=== PATIENT | female | born 1975 | race Caucasian/White ===

== ENCOUNTER 2019-08-20 08:53 | Emergency (ER) | payer OTHER | END 2019-08-20 09:20 | disposition left against medical advice (07) | LOC: JD.ED 08:53 | DX: Z53.21 Procedure and treatment not carried out due to patient leaving prior to being seen by health care provider (principal) ==

== ENCOUNTER 2020-01-13 06:18 | Day surgery (SDC) | payer OTHER ==
[~2020-01-13 06:18] MED LIST: Lactated Ringers 1,000 ML IV SCH; Lidocaine 1%/Sod Bicarbonate in NS 8.4% 1 ML Syringe IDERM PRN; Sodium Chloride 0.9% 10 ML Syringe FLUSH PRN
[2020-01-13] MEDS ORDERED: Lidocaine 1% with EPINEPHrine 1:100,000 20 ML MDV ONE (06:33)
[2020-01-13] MEDS ORDERED: Bupivacaine 0.5% 30 ML SDV ONE (06:33)
[2020-01-13] MEDS ORDERED: Sodium Chloride 0.9% 50 ML SDV ONE (06:33)
[2020-01-13] MEDS ORDERED: Scopolamine 1.5 MG Transdermal Patch TRDERM SCH (07:05)
--- NOTE | 2020-01-13 07:13 | PCM.PREANE ---
Preanesthetic Assessment - Anesthesia/Transfusion/Family Hx Anesthesia History: Prior Anesthesia Reaction Type of Anesthesia Reaction: Excessive Nausea/Vomiting Transfusion History: No Prior Transfusion(s) - Review of Systems General: No Symptoms Pulmonary: No Symptoms Cardiovascular: No Symptoms Gastrointestinal: No Symptoms Neurological: No Symptoms Other: Reports: None - Physical Assessment NPO Status Date: 01/12/20 NPO Status Time: 20:15 Vital Signs: Last Vital Signs Temp 98.2 F 01/13/20 06:30 Pulse 95 01/13/20 06:30 Resp 16 01/13/20 06:30 BP 130/92 H 01/13/20 06:30 Pulse Ox 99 01/13/20 06:30 Height: 1.8 m Weight: 80.739 kg ASA Class: 1 Mental Status: Alert & Oriented x3 Airway Class: Mallampati = 1 Dentition: Reports: Normal Dentition Thyro-Mental Finger Breadths: 3 Mouth Opening Finger Breadths: 3 ROM/Head Extension: Full Lungs: Clear to Auscultation, Normal Respiratory Effort Cardiovascular: Regular Rate, Regular Rhythm - Lab Values: Laboratory Last Values WBC 5.25 K/mm3 (3.98-10.04) 01/13/20 06:42 RBC 5.05 M/mm3 (3.98-5.22) 01/13/20 06:42 Hgb 14.1 gm/dl (11.2-15.7) 01/13/20 06:42 Hct 42.6 % (34.1-44.9) 01/13/20 06:42 MCV 84.4 fl (79.4-94.8) 01/13/20 06:42 MCH 27.9 pg (25.6-32.2) 01/13/20 06:42 MCHC 33.1 g/dl (32.2-35.5) 01/13/20 06:42 RDW Std Deviation 41.9 fL (36.4-46.3) 01/13/20 06:42 Plt Count 346 K/mm3 (182-369) 01/13/20 06:42 MPV 9.2 fl (9.4-12.3) L 01/13/20 06:42 Neut % (Auto) 62.8 % (34.0-71.1) 01/13/20 06:42 Lymph % (Auto) 26.1 % (19.3-51.7) 01/13/20 06:42 [place] % (Auto) 8.2 % (4.7-12.5) 01/13/20 06:42 Eos % (Auto) 2.1 (0.7-5.8) 01/13/20 06:42 Baso % (Auto) 0.4 % (0.1-1.2) 01/13/20 06:42 Neut # (Auto) 3.30 K/mm3 (1.56-6.13) 01/13/20 06:42 Lymph # (Auto) 1.37 K/mm3 (1.18-3.74) 01/13/20 06:42 [place] # (Auto) 0.43 K/mm3 (0.24-0.36) H 01/13/20 06:42 Eos # (Auto) 0.11 K/mm3 (0.04-0.36) 01/13/20 06:42 Baso # (Auto) 0.02 K/mm3 (0.01-0.08) 01/13/20 06:42 Urine Color Yellow (Yellow) 01/13/20 06:25 Urine Appearance Clear (Clear) 01/13/20 06:25 Urine pH 7.5 (5.0-8.0) 01/13/20 06:25 Ur Specific [place] 1.020 (1.005-1.030) 01/13/20 06:25 Urine Protein Trace (Negative) H 01/13/20 06:25 Urine Glucose (UA) Negative (Negative) 01/13/20 06:25 Urine Ketones Negative (Negative) 01/13/20 06:25 Urine Occult Blood Negative (Negative) 01/13/20 06:25 Urine Nitrite Negative (Negative) 01/13/20 06:25 Urine Bilirubin Negative (Negative) 01/13/20 06:25 Urine Urobilinogen 1.0 (0.2-1.0) 01/13/20 06:25 Ur Leukocyte Esterase Negative (Negative) 01/13/20 06:25 Urine RBC 0-5 /hpf (0-5) 01/13/20 06:25 Urine WBC Not seen /hpf (0-5) 01/13/20 06:25 Ur Squamous Epith Cells 0-5 /hpf (0-5) 01/13/20 06:25 Urine Bacteria Moderate /hpf (FEW) H 01/13/20 06:25 Urine Mucus Few /hpf (FEW) 01/13/20 06:25 Urine HCG, Qual Negative (NEGATIVE) 01/13/20 06:25 - Allergies Allergies/Adverse Reactions: Allergies Allergy/AdvReac Type Severity Reaction Status Date / Time No Known Allergies Allergy Verified 01/12/20 12:49 - Acknowledgements Anesthesia Type Planned: General Anesthesia, Regional Block (possible TAP block for incisional pain postoperatively.) Pt an Appropriate Candidate for the Planned Anesthesia: Yes Alternatives and Risks of Anesthesia Discussed w Pt/Guardian: Yes Pt/Guardian Understands and Agrees with Anesthesia Plan: Yes PreAnesthesia Questionnaire HEENT History: Reports: Impaired Vision Other HEENT History: wears glasses Cardiovascular History: Reports: None Respiratory History: Reports: None Gastrointestinal History: Reports: None Genitourinary History: Reports: None SUPERVISOR PLASTERING History: Reports: Other (See Below) Other OB/BYN History: colposcopy, HPV, VEE III, LGSIL Musculoskeletal History: Reports: None Neurological History: Reports: None Psychiatric History: Reports: Anxiety, OCD Endocrine/Metabolic History: Reports: None Hematologic History: Reports: None Immunologic History: Reports: None Oncologic (Cancer) History: Reports: None Dermatologic History: Reports: None - Past Surgical History Head Surgeries/Procedures: Reports: None HEENT Surgical History: Reports: None Cardiovascular Surgical History: Reports: None Respiratory Surgical History: Reports: None GI Surgical History: Reports: None Female Surgical History: Reports: Breast Implant, Section, LEEP, Tubal Ligation Male Surgical History: Reports: None Endocrine Surgical History: Reports: None Neurological Surgical History: Reports: None Musculoskeletal Surgical History: Reports: None Oncologic Surgical History: Reports: None Dermatological Surgical History: Reports: None - SUBSTANCE USE Smoking Status *Q: Never Smoker Recreational Drug Use History: No - HOME MEDS Home Medications: Home Meds Calcium Carbonate/Vitamin D3 [Calcium 600 + Vit D 200] 1 each PO DAILY 01/12/20 [History] Cyanocobalamin (Vitamin B-12) [Vitamin B-12] 1,000 mcg PO DAILY 01/12/20 [ History] Fish Oil/Borage/Flax/Om3,6,9 1 [[place] 3-6-9 Complex Softgel] 1 each PO DAILY [History] Lactobacillus Acidophilus [Probiotic] 1 each PO DAILY 01/12/20 [History] Multivitamin [Daily Rosie] 1 each PO DAILY 01/12/20 [History] Venlafaxine HCl [Venlafaxine ER] 75 mg PO DAILY 01/12/20 [History] Venlafaxine HCl [Venlafaxine ER] 150 mg PO DAILY 01/12/20 [History] diphenhydrAMINE HCl [Benadryl Allergy] 25 mg PO Q6H PRN 01/12/20 [History] - CURRENT (IN HOUSE) MEDS Current Meds: Current Medications Lactated Ringer's (Ringers, Lactated) 1,000 mls @ 125 mls/hr IV ASDIRECTED MAI Last Admin: 01/13/20 06:45 Dose: 125 mls/hr Lidocaine/Sodium Bicarbonate (Buffered Lidocaine 1% In Ns 8.4%) 0.25 ml IDERM ONETIME PRN PRN Reason: Prior to IV Start Last Admin: 01/13/20 06:45 Dose: 0.25 ml Scopolamine (Transderm-Scop) 1.5 mg TRDERM ONETIME MAI Sodium Chloride (Saline Flush) 10 ml FLUSH ASDIRECTED PRN PRN Reason: Keep Vein Open Discontinued Medications Bupivacaine HCl (Marcaine 0.5%) Confirm Administered Dose 30 ml .ROUTE .STK-MED ONE Stop: 01/13/20 06:34 Lidocaine/Epinephrine (Xylocaine 1% With Epinephrine 1:100,000) Confirm Administered Dose 20 ml .ROUTE .STK-MED ONE Stop: 01/13/20 06:34 Sodium Chloride (Normal Saline) Confirm Administered Dose 50 ml .ROUTE .STK-MED ONE Stop: 01/13/20 06:34
[2020-01-13] MEDS ORDERED: Propofol 200 MG/20 ML SDV ONE ×2 (07:18→09:11)
[2020-01-13] MEDS ORDERED: Rocuronium 50 MG/5 ML Vial ONE (07:18)
[2020-01-13] MEDS ORDERED: Midazolam 1 MG/ML 2 ML SDV ONE (07:19)
[2020-01-13] MEDS ORDERED: fentaNYL 250 MCG/5 ML SDV ONE (07:19)
[2020-01-13] MEDS ORDERED: ceFAZolin 1 GM Vial ONE (07:19)
[2020-01-13] MEDS ORDERED: Lidocaine 1% 6 ML ONE (07:19)
[2020-01-13] MEDS ORDERED: Lactated Ringers 1,000 ML ONE (08:12)
[2020-01-13] MEDS ORDERED: Succinylcholine/Sod PF 100 MG/5 ML SYRINGE IV ONE (08:13)
[2020-01-13] MEDS ORDERED: Dexamethasone 4 MG/ML 5 ML MDV ONE (08:17)
[2020-01-13] MEDS ORDERED: Ondansetron 4 MG/2 ML SDV ONE (08:17)
[2020-01-13] MEDS ORDERED: Ketorolac 30 MG/ML SDV ONE (08:17)
[2020-01-13] MEDS ORDERED: fentaNYL 100 MCG/2 ML SDV IVPUSH PRN (08:36)
[2020-01-13] MEDS ORDERED: HYDROmorphone 0.5 MG/0.5 ML Syringe IVPUSH PRN (08:36)
[2020-01-13] MEDS ORDERED: Prochlorperazine 10 MG/2 ML SDV IVPUSH PRN (08:38)
[2020-01-13] MEDS ORDERED: HYDROmorphone 0.5 MG/0.5 ML Syringe ONE (08:39)
[2020-01-13] MEDS ORDERED: Acetaminophen/oxyCODONE 325-5 MG Tab PO PRN (09:07)
[2020-01-13] MEDS ORDERED: Ondansetron 4 MG/2 ML SDV IVPUSH PRN (09:07)
--- NOTE | 2020-01-13 09:21 | PCM.OPNOTE ---
- General Post-Op/Procedure Note Date of Surgery/Procedure: 01/13/20 Operative Procedure(s): Laparoscopically assisted total vaginal hysterectomy with bilateral salpingectomy Findings: Moderate scarring was noted in the anterior lower uterine segment secondary to sections. Fallopian tubes were status post partial salpingectomy done as tubal ligation. Apgars were functional and normal in appearance bilaterally. Appendix appeared flaccid and noninflamed. Anterior and posterior cul-de-sacs otherwise unremarkable. The gallbladder and liver edges were unremarkable. Pre Op Diagnosis: 1. Persistently abnormal Pap smearslow-grade squamous intraepithelial lesion Post-Op Diagnosis: Same Anesthesia Technique: General ET Tube Other Anesthesia Type: 1. Lidocaine quarter percent with epi20 mL 2. Marcaine 0.5%-local10 mL Primary Surgeon: El Storey Secondary Surgeon: Aime Loaiza Anesthesia Provider: Nabil [place] Reason Rock Crusher Was Necessary: Retraction, assistance, patient safety, quality of care. Pathology: Uterus, bilateral fallopian tubes in one specimen container Fluid Replacement, Intraop: 1,800 Output, Urine Amount: 100 EBL in mLs: 150 Drain/Tube Comments:: Indwelling bladder catheter during surgery onlyremoved at the end of the case. Complications: None Condition: Good Free Text/Narrative:: Surgery duration: 53 minutes The patient was taken to the operating room placed in supine position on the operating table. She received 2 g of Ancef preoperatively for infection prophylaxis. She had signed consent previously. After adequate anesthesia patient was placed in a dorsal lithotomy position. It should be noted she had sequential compression stockings in place for DVT prophylaxis. A uterine manipulator was placed as was an latex free indwelling bladder catheter. This was done after adequate prepping and draping. The patient was placed in supine position and 3 laparoscopic port sites were developed. Marcaine 0.5% approximately 3-5 mL was injected at each site. Verres needle was placed and pneumoperitoneum was achieved with 3 L of CO2. Infraumbilical and 2 lateral port sites were developed. Under laparoscopic guidance the upper portion of the hysterectomy was performed. The right mesosalpinx was elevated and crossclamped using the endoseal computerized cautery device. This effectively removed the right fallopian tube which was stopped into the posterior cul-de-sac for later retrieval. The round ligament was taken down to the broad ligament. Uterine vasculature was then crossclamped and developed in routine fashion. Bladder flap was also developed using the Enseal system. At this time attention was turned to the left side and the same process was performed down to and including the uterine vasculature. Vaginal approach was then undertaken. The patient was placed in the dorsal lithotomy position and a weighted speculum was placed in the vagina. The cervix was injected with lidocaine quarter percent with epinephrine 20 mL total. A full circumference incision was made through the epithelium around the cervix. Posterior cul-de-sac was entered without problems. The left uterosacral ligament and then the right uterosacral were taken down using the Enseal vessel closure system. The cardinal ligament and what remained of the uterine vascular vessels and cervical branches of the vessels were managed with the Enseal vessel closure system on each side. Anterior cul-de-sac was then entered and the remaining portion of broad ligament on the right side and a small portion of broad ligament remaining on the left side were then developed in the usual fashion. Uterus was then removed. At this point the uterus was completely removed and sent as specimen. The 2 tubal segments previously freed up were then removed and sent with the uterine specimen. The vaginal cuff was then run with a locked running suture of 0 Monocryl from the 2 o'clock position to the 10 o'clock position. The vagina was closed with a running locked suture of 0 Monocryl. Hemostasis was confirmed this time and no bleeding was noted. Laparoscopy was then performed to ensure hemostasis. Pneumoperitoneum was reestablished and the laparoscope was placed. The pelvis was found to be hemostatically intact. There was no evidence of any bowel adhesion to the vaginal cuff area noted. The sleeves were removed under direct visualization and the upper sleeve was removed after reversal of the pneumoperitoneum. Each of these sites were closed with a single interrupted suture of 3-0 Monocryl. They were further approximated with Dermabond skin glue. At this point the patient was awakened from general endotracheal anesthesia. The [place] catheter had been removed by this time. She is discharged from the operating room in good condition.
--- NOTE | 2020-01-13 09:39 | PCM.POSTAN ---
POST ANESTHESIA ASSESSMENT - MENTAL STATUS Mental Status: Alert, Oriented - VITAL SIGNS Vital Signs: Last Vital Signs Temp 97.2 F 01/13/20 09:21 Pulse 95 01/13/20 06:30 Resp 18 01/13/20 09:30 BP 107/76 01/13/20 09:30 Pulse Ox 100 01/13/20 09:30 - RESPIRATORY Respiratory Status: Respiratory Rate WNL, Airway Patent, O2 Saturation Stable, Supplemental Oxygen - CARDIOVASCULAR CV Status: Pulse Rate WNL, Blood Pressure Stable - GASTROINTESTINAL GI Status: No Symptoms - PAIN Pain Score: 0 - POST OP HYDRATION Hydration Status: Adequate & Stable
--- NOTE | 2020-01-13 13:19 | PCM48HPAN ---
Post Anesthesia Note - EVALUATION WITHIN 48HRS OF ANESTHETIC Vital Signs in Normal Range: Yes Patient Participated in Evaluation: Yes Respiratory Function Stable: Yes Airway Patent: Yes Cardiovascular Function Stable: Yes Hydration Status Stable: Yes Pain Control Satisfactory: Yes Nausea and Vomiting Control Satisfactory: Yes Mental Status Recovered: Yes Vital Signs: Last Vital Signs Temp 97.5 F 01/13/20 11:30 Pulse 81 01/13/20 11:30 Resp 16 01/13/20 11:30 BP 117/73 01/13/20 11:30 Pulse Ox 97 01/13/20 11:30
[2020-01-13] MEDS ORDERED: Ketorolac 30 MG/ML SDV IVPUSH SCH (14:00)
== END 2020-01-13 11:40 | disposition home or self-care (01) ==
LOC: JD.SDS 06:18
PROVIDERS: ATTEND Obstetrics & Gynecology
DX: D25.9 Leiomyoma of uterus, unspecified (principal); N80.0 Endometriosis of uterus; N87.0 Mild cervical dysplasia; N83.8 Other noninflammatory disorders of ovary, fallopian tube and broad ligament; F41.9 Anxiety disorder, unspecified; F42.9 Obsessive-compulsive disorder, unspecified; Z79.899 Other long term (current) drug therapy; Z98.51 Tubal ligation status
CPT/HCPCS: 36415; 58552; 81001; 81025; 85025; 86850; 86900; 86901; A9270; J0690; J1100; J1170; J1885; J2001; J2250; J2405; J2704; J3010; J3490; J7120; 00944